=== PATIENT | male | born 1970 | race African-American/Black ===

== ENCOUNTER 2019-08-16 16:27 | Outpatient (CLI) | payer OTHER | END 2019-08-16 23:59 | disposition home or self-care (01) | LOC: RAD 16:27 | PROVIDERS: ATTEND Physician Assistant Surgical | DX: S83.011A Lateral subluxation of right patella, initial encounter (principal); E66.01 Morbid (severe) obesity due to excess calories; M25.461 Effusion, right knee; X58.XXXA Exposure to other specified factors, initial encounter; Y93.89 Activity, other specified; Y92.89 Other specified places as the place of occurrence of the external cause; Y99.8 Other external cause status ==